=== PATIENT | male | born 1940 | race Caucasian/White ===

== ENCOUNTER 2021-01-22 05:46 | Inpatient (IN) ==
[2021-01-20 11:10] LABS: Bilirubin,Urine Negative (Negative); Blood, Urine Negative (Negative); Glucose,Urine (UA) Negative (Negative); Ketones,Urine Negative (Negative); Mucus,Urine Occasional /LPF (Occasional); Nitrite,Urine Negative (Negative); Protein,Urine Negative; RBC,Urine 1 /HPF (0-4); Urine Appearance CLEAR (Clear); Urine Color Yellow (Yellow); Urine Specific Gravity 1.017 (1.001-1.035); Urine Urobilinogen < 2.0 EU/DL (0.2-1.0)
[2021-01-20 11:13] LABS: Basophils % 0.6 % (0.0-0.8); Eosinophils # 0.2 10*3/uL (0.0-0.87); Eosinophils % 2.4 % (0.00-10.9); Hematocrit 43.2 VOL% (42.0-52.0); Hemoglobin 15.3 GM/DL (14.0-18.0); Immature Granulocytes % 0.3 %; Immature Granulocytes Absolute 0.02 #; Lymphocytes # 1.3 10*3/uL (1.4-4.0); Lymphocytes % 19.8 % (21.2-54.2); Mean Corpuscular HGB Conc 35.4 GM/DL (32-36); Mean Corpuscular Volume 92.5 FL (87-102); Mean Platelet Volume 9.5 FL (9.6-12.0); Monocytes % 8.3 % (1.7-12.7); Neutrophils % 68.6 % (38.7-73.9); Platelet Count 158 T/CUMM (130-400); Red Blood Count 4.67 MC/CUMM (3.8-5.5); Red Cell Distribution Width 12.7 % (9.3-17.3); White Blood Count 6.7 T/CUMM (4-12)
[2021-01-20 11:28] LABS: Calcium 8.6 MG/DL (8.5-10.1); Osmolality,Calculated 282.1 MOS/KG (273-304); Potassium 4.5 MMOL/L (3.5-5.1)
[2021-01-22] MEDS ORDERED: ALVIMOPAN 12 MG CAPSULE PO ONE (06:00)
[2021-01-22] MEDS ORDERED: ceFAZolin 1,000 MG VIAL ONE (06:12)
[2021-01-22] MEDS ORDERED: MANNITOL 100 GM/500 ML BAG IV ONE (06:13)
[2021-01-22] MEDS ORDERED: ROCURONIUM 50 MG/5 ML VIAL IV ONE ×3 (06:15→09:49)
[2021-01-22] MEDS ORDERED: LIDOCAINE 2% 5 ML VIAL ONE (06:15)
[2021-01-22] MEDS ORDERED: propofoL 200 MG/20 ML VIAL IV ONE (06:15)
[2021-01-22] MEDS ORDERED: fentaNYL 100 MCG/2 ML VIAL ONE ×2 (06:16→10:21)
[2021-01-22] MEDS ORDERED: INDOCYANINE GREEN 25 MG VIAL IV ONE (06:28)
[2021-01-22] MEDS: LACTATED RINGERS 1,000 ML IV SCH ×2 (06:53→08:31)
[2021-01-22] MEDS ORDERED: cefTRIAXone 1,000 MG VIAL ONE (07:44)
[2021-01-22] MEDS ORDERED: LACTATED RINGERS 1,000 ML IV ONE (09:49)
[2021-01-22] MEDS ORDERED: ETOMIDATE 40 MG/20 ML VIAL IV ONE (09:49)
[2021-01-22] MEDS ORDERED: GLYCOPYRROLATE 0.4 MG/2 ML VIAL ONE (09:50)
[2021-01-22] MEDS ORDERED: PHENYLEPHRINE 1 MG/10 ML SYRINGE IV ONE (10:12)
[2021-01-22] MEDS ORDERED: SUGAMMADEX 200 MG/2 ML VIAL IV ONE (10:39)
[2021-01-22] MEDS ORDERED: ONDANSETRON 4 MG/2 ML VIAL IV PRN ×2 (10:45→11:26)
[2021-01-22] MEDS ORDERED: NALOXONE 0.4 MG/ML VIAL IV PRN (10:48)
[2021-01-22 11:22] LABS: Bilirubin,Urine Negative (Negative); Blood, Urine Small mg/dL (Negative); Glucose,Urine (UA) Negative (Negative); Ketones,Urine Negative (Negative); Mucus,Urine Occasional /LPF (Occasional); Nitrite,Urine Negative (Negative); Protein,Urine Negative; RBC,Urine 2 /HPF (0-4); Squamous Epithelial Cell,Urine Occasional /HPF (0-10); Urine Appearance CLEAR (Clear); Urine Color Yellow (Yellow); Urine Urobilinogen < 2.0 EU/DL (0.2-1.0)
[2021-01-22] MEDS ORDERED: SEVOFLURANE 1 UNIT/15 MINUTE INH ONE (11:22)
[2021-01-22] MEDS ORDERED: HYDROmorphone 2 MG/1 ML VIAL ONE (11:22)
[2021-01-22] MEDS: HYDROmorphone 2 MG/1 ML VIAL IV PRN ×2 (11:26→11:46)
[2021-01-22] MEDS: HYDROmorphone PCA 30 MG/30 ML SYRINGE IV SCH (11:40)
[2021-01-22] MEDS: GABAPENTIN 300 MG CAPSULE PO SCH ×2 (16:09→21:07)
[2021-01-22] MEDS: HYDROXYCHLOROQUINE 200 MG TABLET PO SCH (21:06)
[2021-01-22] MEDS: ALVIMOPAN 12 MG CAPSULE PO SCH (21:06)
[2021-01-22] MEDS: AMITRIPTYLINE 25 MG TABLET PO SCH (21:06)
[2021-01-22] MEDS: SODIUM CHLORIDE 0.9% 1,000 ML IV SCH (23:15)
[2021-01-23] MEDS: SODIUM CHLORIDE 0.9% 1,000 ML IV SCH (00:58)
[2021-01-23 05:15] LABS: Basophils % 0.2 % (0.0-0.8); Eosinophils # 0.1 10*3/uL (0.0-0.87); Eosinophils % 0.5 % (0.00-10.9); Hematocrit 40.6 VOL% (42.0-52.0); Hemoglobin 13.6 GM/DL (14.0-18.0); Immature Granulocytes % 0.6 %; Immature Granulocytes Absolute 0.08 #; Lymphocytes # 1.4 10*3/uL (1.4-4.0); Lymphocytes % 10.8 % (21.2-54.2); Mean Corpuscular HGB Conc 33.5 GM/DL (32-36); Monocytes % 7.5 % (1.7-12.7); Neutrophils % 80.4 % (38.7-73.9); Platelet Count 138 T/CUMM (130-400); Red Blood Count 4.23 MC/CUMM (3.8-5.5); Red Cell Distribution Width 13.1 % (9.3-17.3)
[2021-01-23 05:44] LABS: Calcium 8.1 MG/DL (8.5-10.1); Osmolality,Calculated 278.4 MOS/KG (273-304); Potassium 4.1 MMOL/L (3.5-5.1)
[2021-01-23] MEDS: amLODIPine 5 MG TABLET PO SCH (08:23)
[2021-01-23] MEDS: HYDROXYCHLOROQUINE 200 MG TABLET PO SCH ×2 (08:23→21:06)
[2021-01-23] MEDS: TAMSULOSIN 0.4 MG CAPSULE PO SCH (08:23)
[2021-01-23] MEDS: GABAPENTIN 300 MG CAPSULE PO SCH ×3 (08:23→21:06)
[2021-01-23] MEDS: ALVIMOPAN 12 MG CAPSULE PO SCH ×2 (08:23→21:07)
[2021-01-23] MEDS: HYDROmorphone PCA 30 MG/30 ML SYRINGE IV SCH (11:28)
[2021-01-23] MEDS ORDERED: oxyCODONE/ACETAMINOPHEN 5-325 MG TABLET PO PRN (14:51)
[2021-01-23] MEDS: oxyCODONE/ACETAMINOPHEN 5-325 MG TABLET PO PRN ×2 (14:59→16:50)
[2021-01-23] MEDS: AMITRIPTYLINE 25 MG TABLET PO SCH (21:07)
[2021-01-24] MEDS: HYDROXYCHLOROQUINE 200 MG TABLET PO SCH (09:45)
[2021-01-24] MEDS: amLODIPine 5 MG TABLET PO SCH (09:45)
[2021-01-24] MEDS: ALVIMOPAN 12 MG CAPSULE PO SCH (09:46)
[2021-01-24] MEDS: GABAPENTIN 300 MG CAPSULE PO SCH (09:47)
[2021-01-24] MEDS: TAMSULOSIN 0.4 MG CAPSULE PO SCH (09:47)
[2021-01-24 12:02] VITALS: BP 136/82
[2021-01-24] MEDS: HYDROmorphone PCA 30 MG/30 ML SYRINGE IV SCH (12:14)
[2021-01-24] MEDS: SODIUM CHLORIDE 0.9% 1,000 ML IV SCH (12:15)
== END 2021-01-24 13:15 | disposition home or self-care (01) | DRG 658 ==
LOC: N.OR 05:46 → N.SDSINP 05:48 → N.4E 12:48
PROVIDERS: ADMIT Urology; ATTEND Urology

== ENCOUNTER 2021-05-18 05:59 | Inpatient (IN) ==
[2021-05-18] MEDS ORDERED: HYDROmorphone 2 MG/1 ML VIAL IV STA (06:30)
[2021-05-18] MEDS ORDERED: ONDANSETRON 4 MG/2 ML VIAL IV STA (06:30)
[2021-05-18 07:08] LABS: Basophils # 0.1 10*3/uL (0.0-0.2); Basophils % 0.6 % (0.0-0.8); Eosinophils # 0.1 10*3/uL (0.0-0.87); Eosinophils % 0.9 % (0.00-10.9); Hemoglobin 13.8 GM/DL (14.0-18.0); Immature Granulocytes % 0.5 %; Immature Granulocytes Absolute 0.06 #; Lymphocytes # 1.3 10*3/uL (1.4-4.0); Lymphocytes % 11.2 % (21.2-54.2); Mean Corpuscular HGB Conc 34.5 GM/DL (32-36); Mean Corpuscular Volume 94.6 FL (87-102); Mean Platelet Volume 9.1 FL (9.6-12.0); Monocytes % 7.7 % (1.7-12.7); Neutrophils % 79.1 % (38.7-73.9); Platelet Count 157 T/CUMM (130-400); Red Blood Count 4.23 MC/CUMM (3.8-5.5); Red Cell Distribution Width 14.5 % (9.3-17.3); White Blood Count 11.7 T/CUMM (4-12)
[2021-05-18 07:23] LABS: PT Patient Result 11.7 SECS (10.5-12.0)
[2021-05-18 07:29] LABS: Calcium 8.4 MG/DL (8.5-10.1); Osmolality,Calculated 284.3 MOS/KG (273-304); Potassium 3.9 MMOL/L (3.5-5.1)
[2021-05-18] MEDS ORDERED: ONDANSETRON 4 MG/2 ML VIAL IV PRN ×2 (07:34→12:15)
[2021-05-18] MEDS: SODIUM CHLORIDE 0.9% 1,000 ML IV SCH ×2 (07:50→16:00)
[2021-05-18] MEDS: HYDROmorphone 2 MG/1 ML VIAL IV PRN ×5 (08:45→21:04)
[2021-05-18] MEDS ORDERED: fentaNYL 100 MCG/2 ML VIAL ONE (08:45)
[2021-05-18] MEDS ORDERED: LIDOCAINE 2% 5 ML VIAL ONE (08:46)
[2021-05-18] MEDS ORDERED: propofoL 200 MG/20 ML VIAL IV ONE (08:47)
[2021-05-18] MEDS ORDERED: SUCCINYLCHOLINE 200 MG/10 ML VIAL ONE (10:21)
[2021-05-18] MEDS ORDERED: CLINDAMYCIN INJ 900 MG/50 ML PREMIX IV ONE (10:24)
[2021-05-18] MEDS ORDERED: ePHEDrine 50 MG/ML VIAL ONE (10:44)
[2021-05-18] MEDS ORDERED: ACETAMINOPHEN INJ 1,000 MG/100 ML VIAL IV ONE (10:51)
[2021-05-18] MEDS ORDERED: ONDANSETRON 4 MG/2 ML VIAL ONE (10:53)
[2021-05-18] MEDS ORDERED: PHENYLEPHRINE 10 MG/1 ML VIAL IV ONE (11:10)
[2021-05-18] MEDS ORDERED: SODIUM CHLORIDE 0.9% 250 ML IV ONE (11:17)
[2021-05-18] MEDS ORDERED: SEVOFLURANE 1 UNIT/15 MINUTE INH ONE (11:30)
[2021-05-18] MEDS: ENOXAPARIN 40 MG/0.4 ML SYRINGE SUBCUT SCH (14:12)
[2021-05-18] MEDS: DOCUSATE SODIUM 100 MG CAPSULE PO SCH ×2 (14:59→21:03)
[2021-05-18] MEDS: PANTOPRAZOLE 40 MG TABLET PO SCH (14:59)
[2021-05-18] MEDS: AMITRIPTYLINE 50 MG TABLET PO SCH (21:03)
[2021-05-18] MEDS: GABAPENTIN 600 MG TABLET PO SCH (21:03)
[2021-05-19] MEDS: SODIUM CHLORIDE 0.9% 1,000 ML IV SCH ×4 (00:22→18:05)
[2021-05-19] MEDS: HYDROmorphone 2 MG/1 ML VIAL IV PRN ×5 (01:54→19:06)
[2021-05-19 05:58] LABS: Basophils % 0.2 % (0.0-0.8); Eosinophils # 0.1 10*3/uL (0.0-0.87); Eosinophils % 0.5 % (0.00-10.9); Immature Granulocytes % 0.7 %; Immature Granulocytes Absolute 0.09 #; Lymphocytes # 1.3 10*3/uL (1.4-4.0); Mean Corpuscular HGB Conc 34.1 GM/DL (32-36); Mean Corpuscular Volume 98.5 FL (87-102); Mean Platelet Volume 9.3 FL (9.6-12.0); Monocytes % 9.6 % (1.7-12.7); Red Cell Distribution Width 14.7 % (9.3-17.3); White Blood Count 13.2 T/CUMM (4-12)
[2021-05-19 06:05] LABS: Red Blood Count 3.25 MC/CUMM (3.8-5.5)
[2021-05-19 06:06] LABS: Hemoglobin 10.9 GM/DL (14.0-18.0); Platelet Count 132 T/CUMM (130-400)
[2021-05-19 06:21] LABS: Calcium 7.3 MG/DL (8.5-10.1); Osmolality,Calculated 278.7 MOS/KG (273-304); Potassium 3.9 MMOL/L (3.5-5.1)
[2021-05-19] MEDS: GABAPENTIN 600 MG TABLET PO SCH ×2 (10:01→20:59)
[2021-05-19] MEDS: amLODIPine 2.5 MG TABLET PO SCH (10:01)
[2021-05-19] MEDS: DOCUSATE SODIUM 100 MG CAPSULE PO SCH ×2 (10:02→20:59)
[2021-05-19] MEDS: PANTOPRAZOLE 40 MG TABLET PO SCH (10:02)
[2021-05-19] MEDS: TAMSULOSIN 0.4 MG CAPSULE PO SCH (10:02)
[2021-05-19] MEDS ORDERED: KETOROLAC 15 MG/1 ML VIAL IV ONE (11:11)
[2021-05-19] MEDS: ENOXAPARIN 40 MG/0.4 ML SYRINGE SUBCUT SCH (12:00)
[2021-05-19] MEDS: oxyCODONE/ACETAMINOPHEN 5-325 MG TABLET PO PRN (12:02)
[2021-05-19] MEDS: METOPROLOL TARTRATE 25 MG TABLET PO SCH ×2 (18:05→20:59)
[2021-05-19] MEDS: AMITRIPTYLINE 50 MG TABLET PO SCH (20:59)
[2021-05-20] MEDS: HYDROmorphone 2 MG/1 ML VIAL IV PRN (02:07)
[2021-05-20] MEDS: SODIUM CHLORIDE 0.9% 1,000 ML IV SCH ×2 (02:07→14:05)
[2021-05-20] MEDS: oxyCODONE/ACETAMINOPHEN 5-325 MG TABLET PO PRN ×2 (06:16→11:32)
[2021-05-20] MEDS: amLODIPine 2.5 MG TABLET PO SCH (09:08)
[2021-05-20] MEDS: METOPROLOL TARTRATE 25 MG TABLET PO SCH (09:08)
[2021-05-20] MEDS: TAMSULOSIN 0.4 MG CAPSULE PO SCH (09:08)
[2021-05-20] MEDS: GABAPENTIN 600 MG TABLET PO SCH (09:08)
[2021-05-20] MEDS: DOCUSATE SODIUM 100 MG CAPSULE PO SCH (09:08)
[2021-05-20] MEDS: PANTOPRAZOLE 40 MG TABLET PO SCH (09:08)
[2021-05-20 11:16] VITALS: BP 100/53
[2021-05-20] MEDS: ENOXAPARIN 40 MG/0.4 ML SYRINGE SUBCUT SCH (14:05)
== END 2021-05-20 14:55 | DRG 482 ==
LOC: EDBD → EDUNIT# → N.ED 05:59 → N.EDINP 07:34 → N.3E 08:04
PROVIDERS: ADMIT Family Medicine; ATTEND Family Medicine